=== PATIENT | male | born 1935 | race Caucasian/White ===

== ENCOUNTER 2017-03-16 10:48 | Inpatient (IN) | payer MEDICARE, OTHER ==
[2017-03-16] VITALS (648 sets, daily range): BP systolic 103–131; BP diastolic 57–66; PULSE 62–67; TEMP 97.2–98.6; O2SAT 80–99
[~2017-03-16] VITALS: Ht 175.3 cm; Wt 85.1 kg
[~2017-03-16 10:48] MED LIST: AVODART 0.5MG0.5 MG PO; CEPHALEXIN500 M1 PO; FLONASE NASAL S16 GM NS; FLONASE0.05 MG/AC NS; HYTRIN10 M1 PO; MICARDIS HCT 121 TAB PO; NORCO 325 MG-7.1 TAB PO; PROAIR HFA0.09 MG/AC IH; RESTASIS0.05% OP; RT ADVAIR 228 DISKUS IH; SEREVENT IH; SINGULAIR 110 MG/TAB PO; TIAZAC240 MG PO; VICODIN 5/5001 UDTAB PO; XALATAN EYE DROPS OU; ZYRTEC 10MG10 MG PO
[2017-03-16 11:24] LABS: BASO % 0.4 % (0.0-2.0); EOS # 0.1 (0.0-0.7); EOS % 1.2 % (0-4.0); GRAN % 72.9 % (42.2-75.2); HEMATOCRIT 26.9 % (42.0-52.0); HEMOGLOBIN 9.1 g/dl (13.5-18.0); LYMPH # 1.3 (1.2-3.4); LYMPH % 18.7 % (20.0-51.0); MEAN CELL VOLUME 100 fl (80.0-100.0); MEAN CORPUSCULAR HEMOGLOBIN 34 pg (27.0-31.0); MEAN CORPUSCULAR HGB CONC 34 g/dl (33.0-37.0); MEAN PLATELET VOLUME 10.2 fl (7.4-10.4); MONO # 0.5 (0.1-0.6); MONO % 6.5 % (1.7-9.3); PLATELET COUNT 178 K/mm3 (130-400); REDCELL DISTRIBUTION WIDTH-CV 13.4 % (11.5-14.5); WHITE BLOOD COUNT 6.9 K/mm3 (4.8-10.8)
[2017-03-16 11:28] LABS: INR 1.1 (0.8-3.0); PROTHROMBIN TIME 12.1 SECONDS (9.7-12.8)
[2017-03-16] MEDS ORDERED: XALATAN EYE DROPS OD (11:29)
[2017-03-16 11:32] LABS: ADJUSTED CALCIUM 9.4 mg/dL (8.4-10.2); ALBUMIN 3.3 gm/dL (3.5-5.0); BILIRUBIN,TOTAL 0.5 mg/dL (0.0-1.0); CALCIUM 8.8 mg/dL (8.4-10.2); CREATININE, serum 1.12 mg/dL (0.66-1.25); POTASSIUM 3.9 mmol/L (3.4-5.0); TOTAL PROTEIN 5.5 gm/dL (6.4-8.2)
[2017-03-16 11:47] LABS: TROPONIN-I 0.016 ng/mL (0.000-0.034)
[2017-03-16 19:34] LABS: HEMATOCRIT 23.2 % (42.0-52.0); HEMOGLOBIN 7.8 g/dl (13.5-18.0)
[2017-03-16 21:44] LABS: HEMATOCRIT 22.9 % (42.0-52.0); HEMOGLOBIN 7.6 g/dl (13.5-18.0)
[2017-03-16 23:19] LABS: PH 5 (5-8); SQUAMOUS EPITHELIAL None Seen /hpf; URINE APPEARANCE Clear; URINE BACTERIA None Seen /hpf; URINE BILIRUBIN Negative (NEGATIVE); URINE BLOOD Negative (NEGATIVE); URINE COLOR Straw; URINE GLUCOSE Negative (NEGATIVE); URINE KETONE Negative (NEGATIVE); URINE RBC 0-2 /hpf; URINE UROBILINOGEN Negative (NEGATIVE); URINE WBC 0-2 /hpf
[2017-03-17] VITALS (641 sets, daily range): BP systolic 129–160; BP diastolic 42–83; PULSE 66–80; TEMP 97.1–98.4; O2SAT 78–100
[2017-03-17 06:27] LABS: ADJUSTED CALCIUM 8.8 mg/dL (8.4-10.2); ALBUMIN 2.7 gm/dL (3.5-5.0); BILIRUBIN,TOTAL 0.4 mg/dL (0.0-1.0); CALCIUM 7.8 mg/dL (8.4-10.2); CREATININE, serum 1.02 mg/dL (0.66-1.25); POTASSIUM 3.2 mmol/L (3.4-5.0); TOTAL PROTEIN 4.8 gm/dL (6.4-8.2)
[2017-03-17 06:30] LABS: BASO % 0.6 % (0.0-2.0); EOS # 0.3 (0.0-0.7); EOS % 4.8 % (0-4.0); GRAN % 57.1 % (42.2-75.2); HEMATOCRIT 21.7 % (42.0-52.0); HEMOGLOBIN 7.3 g/dl (13.5-18.0); LYMPH # 1.6 (1.2-3.4); LYMPH % 30.9 % (20.0-51.0); MEAN CELL VOLUME 100 fl (80.0-100.0); MEAN CORPUSCULAR HEMOGLOBIN 34 pg (27.0-31.0); MEAN CORPUSCULAR HGB CONC 34 g/dl (33.0-37.0); MONO # 0.3 (0.1-0.6); MONO % 6.2 % (1.7-9.3); PLATELET COUNT 149 K/mm3 (130-400); RED BLOOD COUNT 2.17 M/mm3 (4.20-5.60); REDCELL DISTRIBUTION WIDTH-CV 13.4 % (11.5-14.5); WHITE BLOOD COUNT 5.2 K/mm3 (4.8-10.8)
[2017-03-17 12:16] LABS: MAGNESIUM 2.1 mg/dL (1.6-2.3)
[2017-03-17 12:39] LABS: HEMATOCRIT 22.9 % (42.0-52.0); HEMOGLOBIN 7.7 g/dl (13.5-18.0)
[2017-03-17 22:33] LABS: HEMATOCRIT 21.9 % (42.0-52.0); HEMOGLOBIN 7.4 g/dl (13.5-18.0)
[2017-03-18 03:49] VITALS: BP 154/59; PULSE 99; TEMP 98.7
[2017-03-18 07:38] VITALS: BP 15/54; BP 155/54; PULSE 64; TEMP 97.9
[2017-03-18 07:54] LABS: HEMATOCRIT 22.1 % (42.0-52.0); HEMOGLOBIN 7.4 g/dl (13.5-18.0); MAGNESIUM 2.1 mg/dL (1.6-2.3); POTASSIUM 3.5 mmol/L (3.4-5.0)
[2017-03-18 11:01] VITALS: BP 102/45; PULSE 70; TEMP 98
[2017-03-18 14:52] VITALS: BP 148/67; PULSE 75; TEMP 97.4
[2017-03-18 16:12] LABS: HEMATOCRIT 23.3 % (42.0-52.0); HEMOGLOBIN 7.8 g/dl (13.5-18.0)
[2017-03-18] MEDS ORDERED: FERROUS SU325 MG/TAB PO (17:22)
[2017-03-18] MEDS ORDERED: PRIL40 PO (17:23)
== END 2017-03-18 18:46 | disposition home or self-care (01) | DRG 378 ==
LOC: COL.ER 10:48 → MEDICAL 11:50 → ICU 11:50 → MEDICAL 03-17 12:54
PROVIDERS: Emergency Medicine; Internal Medicine; Internal Medicine Gastroenterology; Physician Assistant
PROC: 0W3P8ZZ Control Bleeding in Gastrointestinal Tract, Via Natural or Artificial Opening Endoscopic (ICD-10-PCS; 2017-03-17)
PROC: 0DB68ZX Excision of Stomach, Via Natural or Artificial Opening Endoscopic, Diagnostic (ICD-10-PCS; principal; 2017-03-17 10:00)
DX: K25.0 Acute gastric ulcer with hemorrhage (principal); A04.8 Other specified bacterial intestinal infections; I47.1 Supraventricular tachycardia; D50.0 Iron deficiency anemia secondary to blood loss (chronic); E87.6 Hypokalemia; I10 Essential (primary) hypertension; J44.9 Chronic obstructive pulmonary disease, unspecified; Z87.891 Personal history of nicotine dependence
CPT/HCPCS: 99223-AI; 99233-AI; 99239; C9113; J2250; J2405; J2916; J3010; J7030; J7050

== ENCOUNTER 2018-01-31 20:34 | Emergency (ER) | payer MEDICARE, OTHER ==
[~2018-01-31 20:34] MED LIST changes: +FERROUS SU325 MG/TAB PO; +PRIL40 PO; +XALATAN EYE DROPS OD
[2018-01-31 20:37] VITALS: TEMP 98.1
[2018-01-31 23:25] VITALS: BP 149/92; PULSE 88
== END 2018-01-31 23:25 | disposition home or self-care (01) ==
LOC: COL.ER 20:34
DX: K59.00 Constipation, unspecified (principal); K64.4 Residual hemorrhoidal skin tags; I10 Essential (primary) hypertension; K21.9 Gastro-esophageal reflux disease without esophagitis; Z79.51 Long term (current) use of inhaled steroids

== ENCOUNTER → 2018-07-07 | Outpatient (CLI) | payer MEDICARE, OTHER | LOC: COL.VAS 14:27 | DX: M79.89 Other specified soft tissue disorders (principal) ==

== ENCOUNTER → 2020-06-30 | Outpatient (CLI) | payer MEDICARE, OTHER | LOC: COL.RAD 08:59 | DX: G90.521 Complex regional pain syndrome I of right lower limb (principal); M16.12 Unilateral primary osteoarthritis, left hip; Z96.641 Presence of right artificial hip joint | CPT/HCPCS: A9503 ==

== ENCOUNTER → 2020-07-25 | Outpatient (CLI) | payer MEDICARE, OTHER | LOC: COL.RAD 07:09 | DX: N50.82 Scrotal pain (principal) ==

== ENCOUNTER 2020-08-03 12:51 | Emergency (ER) | payer MEDICARE, OTHER ==
[~2020-08-03] VITALS: Ht 175.3 cm; Wt 81.8 kg
[~2020-08-03 12:51] MED LIST changes: -TIAZAC240 MG PO; +TIAZAC360 MG PO
[2020-08-03 12:56] VITALS: TEMP 98.3
[2020-08-03 13:41] LABS: BASO % 0.5 % (0.0-2.0); EOS # 0.1 (0.0-0.7); EOS % 1.4 % (0-4.0); GRAN % 75.9 % (42.2-75.2); HEMOGLOBIN 11.1 g/dl (13.5-18.0); LYMPH # 0.9 (1.2-3.4); LYMPH % 13.6 % (20.0-51.0); MEAN CELL VOLUME 99 fl (80.0-100.0); MEAN CORPUSCULAR HEMOGLOBIN 32 pg (27.0-31.0); MEAN CORPUSCULAR HGB CONC 33 g/dl (33.0-37.0); MEAN PLATELET VOLUME 10.1 fl (7.4-10.4); MONO # 0.6 (0.1-0.6); MONO % 8.4 % (1.7-9.3); PLATELET COUNT 204 K/mm3 (130-400); RED BLOOD COUNT 3.44 M/mm3 (4.20-5.60)
[2020-08-03 13:43] LABS: HEMATOCRIT 33.9 % (42.0-52.0)
[2020-08-03 13:54] LABS: ALBUMIN 4.1 gm/dL (3.5-5.0); BILIRUBIN,TOTAL 0.8 mg/dL (0.0-1.0); CALCIUM 8.9 mg/dL (8.4-10.2); CREATININE, serum 1.06 (0.66-1.25); POTASSIUM 3.6 mmol/L (3.4-5.0); TOTAL PROTEIN 6.7 gm/dL (6.4-8.2)
[2020-08-03 14:26] VITALS: BP 161/72; PULSE 70
== END 2020-08-03 14:26 | disposition home or self-care (01) ==
LOC: COL.ER 12:51
PROVIDERS: Emergency Medicine
DX: K64.4 Residual hemorrhoidal skin tags (principal); Z87.891 Personal history of nicotine dependence
CPT/HCPCS: J1170; J2405; J7030

== ENCOUNTER 2021-04-19 14:16 | Emergency (ER) | payer MEDICARE, OTHER ==
[~2021-04-19] VITALS: Ht 175.3 cm; Wt 75.0 kg
[2021-04-19 14:26] VITALS: TEMP 100
[2021-04-19 15:07] LABS: BASO % 0.3 % (0.0-2.0); EOS % 0.1 % (0-4.0); GRAN # 11.9 K/mm3 (1.4-6.5); GRAN % 89.1 % (42.2-75.2); HEMOGLOBIN 11.7 g/dl (13.5-18.0); LYMPH # 0.6 K/mm3 (1.2-3.4); LYMPH % 4.3 % (20.0-51.0); MEAN CELL VOLUME 98 fl (80.0-100.0); MEAN CORPUSCULAR HEMOGLOBIN 32 pg (27.0-31.0); MEAN CORPUSCULAR HGB CONC 33 g/dl (33.0-37.0); MEAN PLATELET VOLUME 9.5 fl (7.4-10.4); MONO # 0.8 K/mm3 (0.1-0.6); MONO % 5.8 % (1.7-9.3); PLATELET COUNT 194 K/mm3 (130-400); RED BLOOD COUNT 3.61 M/mm3 (4.20-5.60); REDCELL DISTRIBUTION WIDTH-CV 13.3 % (11.5-14.5)
[2021-04-19 15:10] LABS: HEMATOCRIT 35.4 % (42.0-52.0)
[2021-04-19 15:19] LABS: PROTHROMBIN TIME 11.4 SECONDS (9.7-12.8)
[2021-04-19 15:22] LABS: PARTIAL THROMBOPLASTIN TIME 30.3 SECONDS (26.0-37.0)
[2021-04-19 15:27] LABS: ALBUMIN 4.3 gm/dL (3.4-4.8); BILIRUBIN,TOTAL 0.7 mg/dL (0.2-1.2); CALCIUM 9.8 mg/dL (8.4-10.2); POTASSIUM 4.3 mmol/L (3.5-4.5); TOTAL PROTEIN 7.3 gm/dL (6.2-8.1)
[2021-04-19 15:32] LABS: TROPONIN-I 0.021 ng/mL (0.00-0.033)
[2021-04-19 15:52] LABS: CREATININE, serum 1.37 mg/dL (0.72-1.25)
[2021-04-19] MEDS ORDERED: AMOXICILLIN 8751 TAB PO (16:32)
[2021-04-19] MEDS ORDERED: DOXYCYCLINE 10100 MG PO (16:32)
[2021-04-19 16:50] VITALS: BP 166/88; PULSE 74
== END 2021-04-19 17:09 | disposition home or self-care (01) ==
LOC: COL.ER 14:16
PROVIDERS: Student in an Organized Health Care Education/Training Program
DX: J18.9 Pneumonia, unspecified organism (principal); R79.1 Abnormal coagulation profile; I10 Essential (primary) hypertension; Z79.899 Other long term (current) drug therapy
CPT/HCPCS: J3010; Q9967

== ENCOUNTER 2021-05-15 11:16 | Day surgery (SDC) | payer MEDICARE, OTHER ==
[~2021-05-15] VITALS: Ht 175.4 cm; Wt 75.0 kg
[2021-05-15] VITALS (11 sets, daily range): BP systolic 134–186; BP diastolic 58–93; PULSE 61–80; TEMP 98
[~2021-05-15 11:16] MED LIST changes: +AMOXICILLIN 8751 TAB PO; +DOXYCYCLINE 10100 MG PO
[2021-05-15] MEDS ORDERED: MASON NATURAL2000 IU PO (11:35)
[2021-05-15] MEDS ORDERED: VITAMIN B COMPL1 SGL PO (11:36)
[2021-05-15] MEDS ORDERED: PHARMASSURE ZIN50 MG PO (11:36)
[2021-05-15] MEDS ORDERED: ASPIRIN E.C. 8181 MG PO (11:37)
[2021-05-15 11:53] LABS: HEMATOCRIT 36.1 % (42.0-52.0); HEMOGLOBIN 12.3 g/dl (13.5-18.0); MEAN CELL VOLUME 97 fl (80.0-100.0); MEAN CORPUSCULAR HEMOGLOBIN 33 pg (27.0-31.0); MEAN CORPUSCULAR HGB CONC 34 g/dl (33.0-37.0); PLATELET COUNT 211 K/mm3 (130-400); RED BLOOD COUNT 3.72 M/mm3 (4.20-5.60); REDCELL DISTRIBUTION WIDTH-CV 13.5 % (11.5-14.5)
--- NOTE | 2021-05-15 11:56 | NUR ---
SEE MERGE FOR ALL MEDICATION ADMINISTRATION TIMES/DOSAGES AND INTRA/POST SEDATION ASSESSMENT. PRE ASSESSMENT COMPLETED IN EXPRESS UNIT.
[2021-05-15 12:00] LABS: PROTHROMBIN TIME 11.5 SECONDS (9.7-12.8)
[2021-05-15 12:02] LABS: PARTIAL THROMBOPLASTIN TIME 31.2 SECONDS (26.0-37.0)
[2021-05-15 12:07] LABS: CALCIUM 9.9 mg/dL (8.4-10.2); CREATININE, serum 1.05 mg/dL (0.72-1.25); POTASSIUM 3.7 mmol/L (3.5-4.5)
--- NOTE | 2021-05-15 14:20 | NUR ---
Report from Tomasa العلي. Transferred from Metal Sash Setter by bed. Alert and oriented, denies pain and needs at this time. Right Tband with 12 cc air CD&I, good pulses and cap refill < 3 secs noted. Right groin site drsg CD&I, soft palation and noteable pedal pulses. VSS. Son bedside
--- NOTE | 2021-05-15 17:24 | NUR ---
12 cc air released from right Tband and drsg applied to site. INT discontinued intact. Right groin site soft to paplation and CD&I. Discharge instructions given to pt. Ambulated to bathroom and in room with steady gait, getting dressed at this time
--- NOTE | 2021-05-15 17:35 | NUR ---
Transferred to private car by nicolas
== END 2021-05-15 17:35 | disposition home or self-care (01) ==
LOC: COL.CAR 11:16
PROVIDERS: Internal Medicine Cardiovascular Disease
DX: I25.10 Atherosclerotic heart disease of native coronary artery without angina pectoris (principal); I10 Essential (primary) hypertension; J45.909 Unspecified asthma, uncomplicated; M19.012 Primary osteoarthritis, left shoulder; M19.011 Primary osteoarthritis, right shoulder; M17.0 Bilateral primary osteoarthritis of knee; M16.6 Other bilateral secondary osteoarthritis of hip; M48.00 Spinal stenosis, site unspecified; Z87.891 Personal history of nicotine dependence; Z79.891 Long term (current) use of opiate analgesic; Z79.899 Other long term (current) drug therapy; Z79.1 Long term (current) use of non-steroidal anti-inflammatories (NSAID)
CPT/HCPCS: C1760; C1769; C1894; J0360; J1644; J2250; J3010; J7030; Q9967

== ENCOUNTER 2021-06-17 10:46 | Emergency (ER) | payer MEDICARE, OTHER ==
[~2021-06-17] VITALS: Ht 170.2 cm; Wt 73.6 kg
[~2021-06-17 10:46] MED LIST changes: +ASPIRIN E.C. 8181 MG PO; +MASON NATURAL2000 IU PO; +PHARMASSURE ZIN50 MG PO; +VITAMIN B COMPL1 SGL PO
[2021-06-17 10:51] VITALS: TEMP 98.3
[2021-06-17 12:08] LABS: BASO % 0.9 % (0.0-2.0); EOS # 0.2 K/mm3 (0.0-0.7); GRAN % 65.5 % (42.2-75.2); LYMPH # 0.8 K/mm3 (1.2-3.4); LYMPH % 17.7 % (20.0-51.0); MEAN CELL VOLUME 98 fl (80.0-100.0); MEAN CORPUSCULAR HEMOGLOBIN 33 pg (27-31); MEAN CORPUSCULAR HGB CONC 34 g/dl (33.0-37.0); MEAN PLATELET VOLUME 10.9 fl (7.4-10.4); MONO # 0.5 K/mm3 (0.1-0.6); MONO % 10.5 % (1.7-9.3); PLATELET COUNT 139 K/mm3 (130-400); RED BLOOD COUNT 2.99 M/mm3 (4.20-5.60); REDCELL DISTRIBUTION WIDTH-CV 13.6 % (11.5-14.5)
[2021-06-17 12:12] LABS: HEMATOCRIT 29.2 % (42.0-52.0)
[2021-06-17 12:23] LABS: ALBUMIN 3.6 gm/dL (3.4-4.8); BILIRUBIN,TOTAL 0.5 mg/dL (0.2-1.2); CALCIUM 8.5 mg/dL (8.4-10.2); CREATININE, serum 1.36 mg/dL (0.72-1.25); TOTAL PROTEIN 5.9 gm/dL (6.2-8.1)
[2021-06-17 12:29] LABS: POTASSIUM 3.7 mmol/L (3.5-4.5)
[2021-06-17 12:31] LABS: TROPONIN-I 0.978 ng/mL (0.00-0.033)
[2021-06-17 12:48] VITALS: BP 102/62; PULSE 56
== END 2021-06-17 12:49 | disposition home or self-care (01) ==
LOC: COL.ER 10:46
PROVIDERS: Nurse Practitioner
DX: I95.2 Hypotension due to drugs (principal); R55 Syncope and collapse; I11.0 Hypertensive heart disease with heart failure; I50.9 Heart failure, unspecified; I25.10 Atherosclerotic heart disease of native coronary artery without angina pectoris; Z95.0 Presence of cardiac pacemaker; Z79.82 Long term (current) use of aspirin; Z79.899 Other long term (current) drug therapy

== ENCOUNTER → 2022-01-23 | Outpatient (CLI) | payer MEDICARE, OTHER ==
[2022-01-23 12:42] LABS: HEMOGLOBIN 10.3 g/dl (13.5-18.0); MEAN CELL VOLUME 103 fl (80.0-100.0); MEAN CORPUSCULAR HEMOGLOBIN 33 pg (27-31); MEAN CORPUSCULAR HGB CONC 32 g/dl (33.0-37.0); MEAN PLATELET VOLUME 9.5 fl (7.4-10.4); PLATELET COUNT 179 K/mm3 (130-400)
[2022-01-23 12:44] LABS: HEMATOCRIT 31.8 % (42.0-52.0)
[2022-01-23 12:57] LABS: ANION GAP 9 mmol/L (7-16); BLOOD UREA NITROGEN 54 mg/dL (8-26); CALCIUM 8.9 mg/dL (8.4-10.2); CARBON DIOXIDE 19 mmol/L (23-31); CHLORIDE 111 mmol/L (98-107); CREATININE, serum 1.82 mg/dL (0.72-1.25); GLUCOSE 93 mg/dL (70-99); POTASSIUM 5.4 mmol/L (3.5-4.5); SODIUM 139 mmol/L (136-145)
[2022-01-23 13:18] LABS: THYROID STIMULATING HORMONE 0.923 uIU/mL (0.350-4.940)
[2022-01-23 13:19] LABS: TROPONIN-I < 0.010 ng/mL (0.00-0.033)
== END ==
LOC: COL.LAB 12:15
PROVIDERS: Nurse Practitioner
DX: R42 Dizziness and giddiness (principal); R07.89 Other chest pain

== ENCOUNTER 2022-07-13 09:45 | Outpatient (RCR) | payer MEDICARE, OTHER | END 2022-07-24 | disposition home or self-care (01) | LOC: WSPT | DX: M54.16 Radiculopathy, lumbar region (principal) ==

== ENCOUNTER → 2022-08-07 | Outpatient (CLI) | payer MEDICARE, OTHER ==
[~2022-08-07] MED LIST changes: +APRESOLINE 10MG10 MG PO; +COMPLETE MULTI1 TAB PO; +COREG12.5 MG PO; +CRESTOR40 MG PO; +ENTRESTO 24 MG1 EACH PO; +ISMO 20MG20 MG PO; +NORCO 325 MG-51 TAB PO; +VITAMINC1000TA PO; +VITAMIND3 5000 PO
== END ==
LOC: MHCPAIN 09:02
DX: M47.896 Other spondylosis, lumbar region (principal); M54.16 Radiculopathy, lumbar region; M96.1 Postlaminectomy syndrome, not elsewhere classified
CPT/HCPCS: G0463

== ENCOUNTER 2023-05-22 15:37 | Outpatient (RCR) | payer MEDICARE, OTHER ==
[~2023-05-22 15:37] MED LIST changes: +ALDACTONE 25MG25 M1 PO; +APRESOLINE 25MG25 MG PO; +COREG 6.256.25 MG/TA PO; +ELIQUIS 5MG PO; +ENTRESTO 97 MG1 EACH PO; +HYTRIN 5MG C5 MG/CAP PO; +ISORDIL 20MG20 M1 PO; +JARDIANCE10 PO; +KLOR-CON20 MEQ PO; +LASIX 20MG TABL20 MG PO; +LEADER NATUR1000 MCG PO; +TIMOLOL MALEATE5 M1 OP; +TYLENOL 325MG325 MG PO; +VITAMIN D 50,1.25 MG PO
== END 2023-05-23 | disposition home or self-care (01) ==
LOC: COL.CR
DX: I50.22 Chronic systolic (congestive) heart failure (principal)

== ENCOUNTER 2023-06-21 14:53 | Outpatient (RCR) | payer MEDICARE, OTHER | END 2023-06-23 | disposition home or self-care (01) | LOC: COL.CR | DX: I50.22 Chronic systolic (congestive) heart failure (principal) ==

== ENCOUNTER 2023-07-05 13:28 | Outpatient (RCR) | payer MEDICARE, OTHER | END 2023-07-24 | disposition home or self-care (01) | LOC: COL.CR | DX: I50.22 Chronic systolic (congestive) heart failure (principal) ==

== ENCOUNTER 2023-10-21 13:35 | Emergency (ER) | payer MEDICARE, OTHER ==
[~2023-10-21] VITALS: Ht 172.7 cm; Wt 69.5 kg
[~2023-10-21 13:35] MED LIST changes: +ENTRESTO 49 MG1 EACH PO; +NITRO-DUR0.3 MG/PAT TD; +NITROSTAT0.4 MG/TAB SL
[2023-10-21 13:38] VITALS: TEMP 98.6
[2023-10-21 14:12] LABS: BASO % 0.7 % (0.0-2.0); EOS # 0.1 K/mm3 (0.0-0.7); EOS % 2.2 % (0.0-4.0); GRAN # 4.5 K/mm3 (1.4-6.5); GRAN % 77.9 % (42.2-75.2); HEMOGLOBIN 12.1 g/dl (13.5-18.0); LYMPH # 0.8 K/mm3 (1.2-3.4); LYMPH % 13.9 % (20.0-51.0); MEAN CELL VOLUME 102 fl (80.0-100.0); MEAN CORPUSCULAR HEMOGLOBIN 34 pg (27-31); MEAN CORPUSCULAR HGB CONC 33 g/dl (33.0-37.0); MEAN PLATELET VOLUME 10.1 fl (7.4-10.4); MONO # 0.3 K/mm3 (0.1-0.6); MONO % 5.1 % (1.7-9.3); PLATELET COUNT 155 K/mm3 (130-400)
[2023-10-21 14:15] LABS: HEMATOCRIT 36.7 % (42.0-52.0)
[2023-10-21 14:20] LABS: INR 1.1 (0.8-3.0); PROTHROMBIN TIME 11.5 SECONDS (9.7-12.8)
[2023-10-21 14:23] LABS: PARTIAL THROMBOPLASTIN TIME 32.3 SECONDS (26.0-37.0)
[2023-10-21 14:44] LABS: ALBUMIN 3.5 g/dL (3.4-4.8); BILIRUBIN,TOTAL 0.5 mg/dL (0.2-1.2); CALCIUM 8.8 mg/dL (8.4-10.2); CREATININE, serum 1.28 mg/dL (0.72-1.25); MAGNESIUM 2.2 mg/dL (1.6-2.6); TOTAL PROTEIN 6.3 g/dl (6.2-8.1)
[2023-10-21 14:50] LABS: TROPONIN-I 0.019 ng/mL (0.00-0.033)
[2023-10-21 15:12] VITALS: BP 142/76; PULSE 61
== END 2023-10-21 15:12 | disposition home or self-care (01) ==
LOC: COL.ER 13:35
PROVIDERS: Family Medicine
DX: R07.89 Other chest pain (principal); D64.9 Anemia, unspecified; Z95.810 Presence of automatic (implantable) cardiac defibrillator

== ENCOUNTER 2024-01-10 14:18 | Emergency (ER) | payer MEDICARE, OTHER ==
[~2024-01-10] VITALS: Ht 172.7 cm; Wt 69.1 kg
[2024-01-10 14:32] VITALS: TEMP 98.1
[2024-01-10] MEDS ORDERED: NS 500 ML IV ONE ×2 (15:15→15:45)
[2024-01-10 15:18] LABS: GRAN % 87.6 % (42.2-75.2); HEMOGLOBIN 11.5 g/dl (13.5-18.0); LYMPH # 0.5 K/mm3 (1.2-3.4); LYMPH % 6.7 % (20.0-51.0); MEAN CELL VOLUME 104 fl (80.0-100.0); MEAN CORPUSCULAR HEMOGLOBIN 34 pg (27-31); MEAN CORPUSCULAR HGB CONC 33 g/dl (33.0-37.0); MEAN PLATELET VOLUME 10.7 fl (7.4-10.4); MONO # 0.4 K/mm3 (0.1-0.6); MONO % 5.2 % (1.7-9.3); PLATELET COUNT 151 K/mm3 (130-400); RED BLOOD COUNT 3.42 M/mm3 (4.20-5.60); REDCELL DISTRIBUTION WIDTH-CV 14.3 % (11.5-14.5)
[2024-01-10 15:21] LABS: HEMATOCRIT 35.4 % (42.0-52.0)
[2024-01-10 15:28] LABS: COLLECTION METHOD CLEAN CATCH
[2024-01-10 15:35] LABS: ALANINE AMINOTRANSFERASE 30 U/L (0-55); ALBUMIN 3.8 g/dL (3.4-4.8); ALKALINE PHOSPHATASE 59 U/L (40-150); ANION GAP 12 mmol/L (7-16); AST,SGOT 31 U/L (5-34); BILIRUBIN,TOTAL 0.4 mg/dL (0.2-1.2); BLOOD UREA NITROGEN 69 mg/dL (8-26); CALCIUM 8.8 mg/dL (8.4-10.2); CHLORIDE 106 mEq/L (98-107); CREATININE, serum 1.94 mg/dL (0.72-1.25); GLUCOSE 132 mg/dL (70-99); POTASSIUM 5.1 mEq/L (3.5-4.5); SODIUM 137 mEq/L (136-145); TOTAL PROTEIN 6.1 g/dl (6.2-8.1)
[2024-01-10 15:38] LABS: URINE APPEARANCE CLEAR (CLEAR/HAZY); URINE BLOOD NEGATIVE (NEGATIVE); URINE COLOR YELLOW (YELLOW); URINE GLUCOSE TRACE (NEGATIVE); URINE KETONE TRACE (NEGATIVE); URINE NITRATE NEGATIVE (NEGATIVE); URINE PROTEIN(semi-quant) TRACE (NEGATIVE)
[2024-01-10 15:45] LABS: TROPONIN-I < 0.010 ng/mL (0.00-0.033)
[2024-01-10 16:50] VITALS: BP 164/90; PULSE 60
== END 2024-01-10 16:50 | disposition home or self-care (01) ==
LOC: COL.ER 14:18
PROVIDERS: Family Medicine
DX: I95.9 Hypotension, unspecified (principal); I42.9 Cardiomyopathy, unspecified; E86.0 Dehydration; Z79.899 Other long term (current) drug therapy
CPT/HCPCS: J7040

== ENCOUNTER 2024-03-10 10:55 | Inpatient (IN) | payer MEDICARE, OTHER ==
[~2024-03-10] VITALS: Ht 175.3 cm; Wt 70.5 kg
[~2024-03-10 10:55] MED LIST changes: +TIMOLOL MALEATE5 M1 OU
[2024-03-10 11:25] LABS: BASO # 0.1 K/mm3 (0.0-0.2); BASO % 1.3 % (0.0-2.0); EOS # 0.3 K/mm3 (0.0-0.7); EOS % 6.3 % (0.0-4.0); GRAN # 3.1 K/mm3 (1.4-6.5); GRAN % 64.2 % (42.2-75.2); HEMATOCRIT 33.4 % (42.0-52.0); HEMOGLOBIN 11.2 g/dl (13.5-18.0); LYMPH # 0.9 K/mm3 (1.2-3.4); MEAN CELL VOLUME 103 fl (80.0-100.0); MEAN CORPUSCULAR HEMOGLOBIN 35 pg (27-31); MEAN CORPUSCULAR HGB CONC 34 g/dl (33.0-37.0); MEAN PLATELET VOLUME 10.6 fl (7.4-10.4); MONO # 0.4 K/mm3 (0.1-0.6); PLATELET COUNT 121 K/mm3 (130-400); RED BLOOD COUNT 3.24 M/mm3 (4.20-5.60); REDCELL DISTRIBUTION WIDTH-CV 13.3 % (11.5-14.5)
[2024-03-10 11:46] LABS: BILIRUBIN,TOTAL 1.1 mg/dL (0.2-1.2); CALCIUM 8.9 mg/dL (8.4-10.2); CREATININE, serum 1.22 mg/dL (0.72-1.25); POTASSIUM 3.9 mEq/L (3.5-4.5); TOTAL PROTEIN 6.3 g/dl (6.2-8.1)
[2024-03-10 11:53] LABS: TROPONIN-I 0.025 ng/mL (0.00-0.033)
[2024-03-10] MEDS ORDERED: Furosemide 40 MG/4 ML VIAL IV ONE (12:45)
[2024-03-10] MEDS ORDERED: LEADER NATUR1000 MCG (14:26)
[2024-03-10] MEDS ORDERED: LASIX 20MG TABL20 MG PO (14:56)
[2024-03-10] MEDS ORDERED: Polyethylene Glycol 3350 17 GM PDS PO PRN (15:30)
[2024-03-10] MEDS ORDERED: Ondansetron 4 MG/2 ML VIAL IV PRN (15:30)
[2024-03-10] MEDS ORDERED: Acetaminophen 325 MG TAB PO PRN (15:30)
[2024-03-10] MEDS ORDERED: Docusate Sodium 100 MG CAP PO PRN (15:30)
[2024-03-10] MEDS ORDERED: Albuterol/Ipratropium 3 MG-0.5 MG/3 ML Neb Soln IH PRN (16:45)
[2024-03-10] MEDS ORDERED: Carvedilol 6.25 MG TAB PO SCH (17:00)
[2024-03-10 17:25] VITALS: BP 158/80; PULSE 71; TEMP 98.5
[2024-03-10] MEDS ORDERED: Furosemide 100 MG in NS 100 ML (AT SET RATE) IV SCH (17:45)
--- NOTE | 2024-03-10 18:42 | NUR ---
PATIENT RESTING IN BEDSIDE RECLINER WITH FAMILY AT BEDSIDE WITH TV ON WITH NO ACUTE DISTRESS NOTED. PATIENT ON ROOM AIR. LASIX INFUSING INTO RIGHT FOREARM WITH NO COMPLICATIONS NOTED. TELEMETRY INTACT. BEDSIDE REPORT RECIEVED FROM LOAN AT THIS TIME. PATIENT DENIES ANY NEEDS. RECLINER LOCKED AND CALL LIGHT WITHIN REACH.
[2024-03-10] MEDS ORDERED: Formoterol 20 MCG,Budesonide 0.5 MG IH SCH (19:00)
[2024-03-10] MEDS ORDERED: hydrALAZINE 25 MG TAB PO SCH (21:00)
[2024-03-10] MEDS ORDERED: Rosuvastatin 40 MG **** subs to Atorvastatin 80 MG PO SCH (21:00)
[2024-03-10] MEDS ORDERED: Latanoprost 0.005% Ophth Soln 2.5 ML BOTTLE OP SCH (21:00)
[2024-03-10] MEDS ORDERED: Cetirizine 10 MG TAB PO SCH (21:00)
[2024-03-10] MEDS ORDERED: Atorvastatin 80 MG TAB PO SCH (21:00)
[2024-03-10] MEDS ORDERED: Fluticasone Nasal 50 MCG/Spray 16 GM BOTTLE NS SCH (21:00)
[2024-03-10] MEDS ORDERED: Nitroglycerin 0.1 MG/HR DAILY PATCH TD SCH (21:00)
[2024-03-10] MEDS ORDERED: NITROGLYCERIN 0.2 MG/HR TD SCH (21:00)
[2024-03-10] MEDS ORDERED: Famotidine 20 MG TAB PO SCH (21:00)
[2024-03-10] MEDS ORDERED: Furosemide 40 MG/4 ML VIAL IV SCH (21:00)
[2024-03-10 21:09] VITALS: BP 150/90; PULSE 72; TEMP 98.2
[2024-03-10 22:05] VITALS: BP_SYST 150
--- NOTE | 2024-03-10 22:05 | NUR ---
PATIENT RESTING IN BEDSIDE RECLINER WITH TV ON WITH NO FAMILY PRESENT WITH NO ACUTE DISTRESS NOTED. PATIENT ON ROOM AIR. LAXIS INFUSING INTO RIGHT FOREARM WITH NO COMPLICATIONS NOTED. TELEMETRY INTACT. ASSESSMENT AND MEDICATION ADMINISTRATION COMPLETED AT THIS TIME. PATIENT TOLERATED WELL. PATIENT HELPED TO MOVE RECLINER AWAY FROM WALL DUE TO PATIENT REQUESTING TO SLEEP IN RECLINER. PATIENT DENIES ANY OTHER NEEDS. RECLINER LOCKED AND CALL LIGHT WITHIN REACH.
[2024-03-11] VITALS (12 sets, daily range): BP systolic 84–165; BP diastolic 49–83; PULSE 60–72; TEMP 97.6–98.4
[2024-03-11 07:12] LABS: BASO # 0.1 K/mm3 (0.0-0.2); BASO % 1.2 % (0.0-2.0); EOS # 0.3 K/mm3 (0.0-0.7); EOS % 6.9 % (0.0-4.0); GRAN # 2.3 K/mm3 (1.4-6.5); GRAN % 57.1 % (42.2-75.2); HEMOGLOBIN 11.3 g/dl (13.5-18.0); LYMPH # 1.1 K/mm3 (1.2-3.4); LYMPH % 25.8 % (20.0-51.0); MEAN CELL VOLUME 102 fl (80.0-100.0); MEAN CORPUSCULAR HEMOGLOBIN 34 pg (27-31); MEAN CORPUSCULAR HGB CONC 34 g/dl (33.0-37.0); MEAN PLATELET VOLUME 10.7 fl (7.4-10.4); MONO # 0.4 K/mm3 (0.1-0.6); MONO % 8.8 % (1.7-9.3); PLATELET COUNT 112 K/mm3 (130-400); REDCELL DISTRIBUTION WIDTH-CV 13.2 % (11.5-14.5)
[2024-03-11 07:13] LABS: HEMATOCRIT 33.5 % (42.0-52.0)
[2024-03-11 07:23] LABS: CALCIUM 8.5 mg/dL (8.4-10.2); CREATININE, serum 1.25 mg/dL (0.72-1.25)
[2024-03-11] MEDS ORDERED: hydrALAZINE 25 MG TAB PO SCH (08:00)
--- NOTE | 2024-03-11 08:10 | NUR ---
PATIENT ALERT AND ORIENTED X4. DENIES PAIN REPORTS A HEADACHE. TELEMETRY PLACED. ON LASIX DRIP INFUSING PER EMAR. DENIES CHEST PAIN, TIGHTNESS OR SOA AT THIS TIME. NIRO PATCH X2 ON RIGHT UPPER CHEST. CALL LIGHT WITHINN REACH. BED AT LOWEST POSITION.
[2024-03-11] MEDS ORDERED: Montelukast 10 MG TAB PO SCH (09:00)
[2024-03-11] MEDS ORDERED: Spironolactone 12.5 MG TAB PO SCH (09:00)
[2024-03-11] MEDS ORDERED: Timolol 0.5% Ophth Soln 5 ML BOTTLE OP SCH (09:00)
[2024-03-11] MEDS ORDERED: Empagliflozin 10 MG TAB PO SCH (09:00)
[2024-03-11] MEDS ORDERED: *Potassium Replacement Protocol MC SCH (09:30)
[2024-03-11] MEDS ORDERED: Potassium Bicarbonate/Citrate 20 MEQ Effervescent TAB PO SCH (09:30)
[2024-03-11] MEDS ORDERED: Carvedilol 6.25 MG TAB PO ONE (09:45)
--- NOTE | 2024-03-11 10:37 | NUR ---
Initial visit; Patient had a visitor and was using the telephone so Perinatal Instructor just introduced herself and let patient know 'Spiritual Care' is available at our hospital. He thanked Perinatal Instructor.
[2024-03-11] MEDS ORDERED: Magnesium Sulfate 2 GM/50 ML IV SOLN IV ONE (11:00)
[2024-03-11 13:33] LABS: CALCIUM 8.8 mg/dL (8.4-10.2); CREATININE, serum 1.47 mg/dL (0.72-1.25); MAGNESIUM 2.3 mg/dL (1.6-2.6); POTASSIUM 4.3 mEq/L (3.5-4.5)
--- NOTE | 2024-03-11 13:53 | NUR ---
Pot Press Operator met with patient at bedside to discuss discharge planning. Patient stated that he currently lives in [place] with his Kathryn ([phone]). When asked, the patient confirmed that he has a DPOA and named both his and his granddaughter Hubert ([phone]) as his DPOAs. Patient reported that his PCP is Dr. Perales and that he uses the pharmacy at [facility] for his prescriptions. At this time, the patient reports that he is independent in his ADLs, uses no DMEs, and is able to transport himself as needed. Patient has no concerns regarding discharge at this time. Plan: D/C to home.
--- NOTE | 2024-03-11 16:30 | NUR ---
Reviewed education for chronic heart failure. Reviewed [facility] CHF educational booklet with emphasis on daily weights, obtaining dry weights, monitoring for edema, shortness of breath, decreased endurance, or feeling full when eating less. Reviewed importance of medication compliance with all prescribed medications and when to call your medical provider (CHF zones). Patient verbalized understanding.
[2024-03-11] MEDS ORDERED: Carvedilol 25 MG TAB PO SCH (17:00)
--- NOTE | 2024-03-11 20:30 | NUR ---
Initial shift assessment done- denies pain, Up walking in arreola, Tele on 88/min A-paced, no requests at this time.
[2024-03-11] MEDS ORDERED: Famotidine 20 MG TAB PO SCH (21:00)
[2024-03-12] VITALS (13 sets, daily range): BP systolic 109–147; BP diastolic 54–75; PULSE 60–72; TEMP 97.6–98.6
--- NOTE | 2024-03-12 06:06 | NUR ---
States slept good last night/ VSS. States did just get up and voided ,, did not use the urinal but states was a good amount. Hopes to go home today
[2024-03-12 06:23] LABS: EOS # 0.4 K/mm3 (0.0-0.7); EOS % 8.6 % (0.0-4.0); GRAN # 2.3 K/mm3 (1.4-6.5); GRAN % 53.4 % (42.2-75.2); HEMOGLOBIN 11.7 g/dl (13.5-18.0); LYMPH # 1.1 K/mm3 (1.2-3.4); LYMPH % 27.1 % (20.0-51.0); MEAN CELL VOLUME 102 fl (80.0-100.0); MEAN CORPUSCULAR HEMOGLOBIN 35 pg (27-31); MEAN CORPUSCULAR HGB CONC 34 g/dl (33.0-37.0); MEAN PLATELET VOLUME 10.3 fl (7.4-10.4); MONO # 0.4 K/mm3 (0.1-0.6); MONO % 9.7 % (1.7-9.3); PLATELET COUNT 139 K/mm3 (130-400); RED BLOOD COUNT 3.37 M/mm3 (4.20-5.60); REDCELL DISTRIBUTION WIDTH-CV 13.2 % (11.5-14.5)
[2024-03-12 06:34] LABS: HEMATOCRIT 34.2 % (42.0-52.0)
[2024-03-12 07:04] LABS: CALCIUM 8.7 mg/dL (8.4-10.2); CREATININE, serum 1.57 mg/dL (0.72-1.25); MAGNESIUM 2.5 mg/dL (1.6-2.6); POTASSIUM 3.5 mEq/L (3.5-4.5)
[2024-03-12] MEDS ORDERED: Potassium Bicarbonate/Citrate 20 MEQ Effervescent TAB PO SCH (08:15)
[2024-03-12] MEDS ORDERED: D5W 500 ML IV ONE (08:15)
--- NOTE | 2024-03-12 08:30 | NUR ---
PATIENT ALERT AND ORIENTED SITTING IN RECLINER. ON ROOM AIR, TELEMETRY INPLACE, DENIES SOA OR PAIN AT THIS TIME. REPORTS SLEEPING WELL LAST NIGHT. SHIFT ASSESSMENT COMPLETED. CALL LIGHT WITHIN REACH. BED AT LOWEST POSITION.
--- NOTE | 2024-03-12 20:15 | NUR ---
Initial shift assessment done- VSS, walking around his room, watching TV, had his son visiting but he did just leave now-- No requests, states he feels fine, tele -Paced 67/min. Really hoping to go home tomorrow- understands we are checking labs in the am. No pain, no edema, no SOB.
[2024-03-13 00:30] VITALS: BP_SYST 122
[2024-03-13 04:28] VITALS: BP 146/76; PULSE 69; TEMP 98.3
[2024-03-13 04:30] VITALS: BP_SYST 146
--- NOTE | 2024-03-13 06:00 | NUR ---
Quiet night , no requests, VSS
[2024-03-13 07:16] LABS: CALCIUM 8.7 mg/dL (8.4-10.2); CREATININE, serum 1.51 mg/dL (0.72-1.25); MAGNESIUM 2.4 mg/dL (1.6-2.6); POTASSIUM 3.9 mEq/L (3.5-4.5)
[2024-03-13 07:34] VITALS: BP 149/83; PULSE 70; TEMP 98.2
[2024-03-13] MEDS ORDERED: Heparin 5,000 UNITS/ML 1 ML VIAL SQ SCH (08:00)
[2024-03-13 08:23] VITALS: BP_SYST 149
[2024-03-13] MEDS ORDERED: Potassium Bicarbonate/Citrate 20 MEQ Effervescent TAB PO ONE (08:30)
[2024-03-13] MEDS ORDERED: COREG 25MG25 MG/TAB PO (08:56)
[2024-03-13] MEDS ORDERED: ENTRESTO 24 MG1 EACH PO (09:22)
[2024-03-13] MEDS ORDERED: ALDACTONE 25MG25 M1 PO (09:22)
--- NOTE | 2024-03-13 09:40 | NUR ---
THIS RN GAVE PATIENT DISCHARGE EDUCATION AND INSTRUCTIONS. ALL QUESTIONS ANSWERED. IV TO RFA DISCONTINUED. MINIMAL DRAINAGE NOTED.
--- NOTE | 2024-03-13 10:03 | NUR ---
PATIENT ESCORTED OFF UNIT AT APPROX 1000. ALL BELONGINGS WITH PATIENT.
--- NOTE | 2024-03-13 13:10 | NUR ---
sheet metal worker attended interdisciplinary clinical rounding with Dr. Garvey. Patient is medically ready for discharge. SW met with patient and his family member to review the important message from [employer]. Patient understood and signed the form. SW made a copy, placed original in chart and provided copy to patient. SW asked patient if there were any supplies or services he would need at home. Patient stated he was doing well at home and had no needs at this time. Discharge plan: Home
== END 2024-03-13 10:00 | disposition home or self-care (01) | DRG 291 ==
LOC: COL.ER 10:55 → MEDICAL 15:38
PROVIDERS: Internal Medicine; Personal Emergency Response Attendant; ADMIT Internal Medicine
DX: I13.0 Hypertensive heart and chronic kidney disease with heart failure and stage 1 through stage 4 chronic kidney disease, or unspecified chronic kidney disease (principal); I50.23 Acute on chronic systolic (congestive) heart failure; N17.9 Acute kidney failure, unspecified; E87.0 Hyperosmolality and hypernatremia; J42 Unspecified chronic bronchitis; E78.5 Hyperlipidemia, unspecified; Z66 Do not resuscitate; I25.10 Atherosclerotic heart disease of native coronary artery without angina pectoris; I16.0 Hypertensive urgency; I48.0 Paroxysmal atrial fibrillation; J45.909 Unspecified asthma, uncomplicated; H26.9 Unspecified cataract; H40.9 Unspecified glaucoma; I08.3 Combined rheumatic disorders of mitral, aortic and tricuspid valves; M19.90 Unspecified osteoarthritis, unspecified site; I71.21 Aneurysm of the ascending aorta, without rupture; Z90.49 Acquired absence of other specified parts of digestive tract; Z95.810 Presence of automatic (implantable) cardiac defibrillator; Z79.899 Other long term (current) drug therapy; Z87.891 Personal history of nicotine dependence; Z79.82 Long term (current) use of aspirin
CPT/HCPCS: A9270; J1650; J1940; J3475; J7060